=== PATIENT | male | born 1950 | race Caucasian/White ===

== ENCOUNTER 2017-09-04 13:56 | Emergency (ER) | payer MEDICARE, BC ==
[2017-09-04] MEDS ORDERED: Sodium Chloride 0.9% 10 ML Syringe FLUSH PRN (14:12)
[2017-09-04] MEDS ORDERED: Aspirin 81 MG Tab.Chew PO ONE (14:12)
--- NOTE | 2017-09-04 15:14 | CR ---
Chest: Portable view of the chest was obtained. Comparison: No prior study. Heart size is within normal limits. Mild tortuosity of the thoracic aorta is seen. Lungs are clear. Slight scoliosis is present within the spine. Impression: 1. Nothing acute is appreciated on portable chest x-ray. Diagnostic code #2
--- NOTE | 2017-09-04 15:24 | EDM.PDOC ---
ED HPI GENERAL MEDICAL PROBLEM - General Chief Complaint: Chest Pain Stated Complaint: SENT [facility] Time Seen by Provider: 09/04/17 14:06 Source of Information: Reports: Patient History Limitations: Reports: No Limitations - History of Present Illness INITIAL COMMENTS - FREE TEXT/NARRATIVE: The patient presents with right sided chest pain. This started this morning after feeding cows. The pain is not sharp but dull. Nothing makes it worse. He may be a little short of breath with it. He has no diaphoresis. He has no fever, chills, cough, congestion, runny nose, abdominal pain, nausea or vomiting. He checked his BP at home and it was high. He is on blood pressure medication. He has been under lots of stress lately. He has never had a heart attack or troubles with his heart. 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 Denies: Fever/ Chills, Headaches, Nausea/Vomiting Right Chest Pain Score (Numeric/FACES): 5 - Related Data Allergies Allergy/AdvReac Type Severity Reaction Status Date / Time No Known Allergies Allergy Verified 09/04/17 14:03 Home Meds: Home Meds Doxazosin Mesylate [Cardura] 8 mg PO DAILY 09/04/17 [History] Omeprazole 20 mg PO DAILY 09/04/17 [History] Tamsulosin HCl 0.4 mg PO DAILY 09/04/17 [History] Past Medical History Cardiovascular History: Reports: Hypertension Gastrointestinal History: Reports: GERD Genitourinary History: Reports: Renal Calculus Social & Family History - Tobacco Use Smoking Status *Q: Former Smoker Used Tobacco, but Quit: Yes Month/Year Tobacco Last Used: Second Hand Smoke Exposure: No - Caffeine Use Caffeine Use: Reports: Coffee - Recreational Drug Use Recreational Drug Use: No ED ROS GENERAL - Review of Systems Review Of Systems: See Below Constitutional: Reports: No Symptoms HEENT: Reports: No Symptoms Respiratory: Reports: Shortness of Breath Cardiovascular: Reports: Chest Pain Endocrine: Reports: No Symptoms GI/Abdominal: Reports: No Symptoms : Reports: No Symptoms Musculoskeletal: Reports: No Symptoms Skin: Reports: No Symptoms ED EXAM, GENERAL - Physical Exam Exam: See Below Exam Limited By: No Limitations General Appearance: Alert, No Apparent Distress Ears: Normal External Exam Nose: Normal Inspection Head: Atraumatic, Normocephalic Neck: Normal Inspection Respiratory/Chest: No Respiratory Distress, Lungs Clear, Normal Breath Sounds Cardiovascular: Regular Rate, Rhythm, No Edema, No Murmur GI/Abdominal: Soft, Non-Tender, No Organomegaly, No Mass Back Exam: Normal Inspection Extremities: Normal Inspection Neurological: Alert, Oriented, No Motor/Sensory Deficits EKG INTERPRETATION EKG Date: 09/04/17 Time: 14:03 Rhythm: NSR Rate (Beats/Min): 61 Kyle: Normal P-Wave: Present QRS: Normal ST-T: Normal QT: Normal Course - Vital Signs Last Recorded V/S: Last Vital Signs Temp 97.5 F 09/04/17 14:03 Pulse 73 09/04/17 14:03 Resp 20 09/04/17 14:03 BP 148/96 H 09/04/17 14:03 Pulse Ox 95 09/04/17 14:03 - Orders/Labs/Meds Orders: Active Orders 24 hr Category Date Time Status Cardiac Monitoring [RC] . DIRECTED Care 09/04/17 14:12 Active EKG Documentation Completion [RC] ASDIRECTED Care 09/04/17 16:39 Active EKG Documentation Completion [RC] STAT Care 09/04/17 14:12 Active Peripheral IV Care [RC] . DIRECTED Care 09/04/17 14:12 Active Sodium Chloride 0.9% [Saline Flush] Med 09/04/17 14:12 Active 10 ml FLUSH ASDIRECTED PRN Peripheral IV Insertion Adult [OM.PC] Stat Oth 09/04/17 14:12 Ordered EKG 12 Lead [EK] Stat Ther 09/04/17 16:39 Ordered Medication Orders Sodium Chloride (Saline Flush) 10 ml FLUSH ASDIRECTED PRN PRN Reason: Keep Vein Open Last Admin: 09/04/17 14:13 Dose: 10 ml Labs: Laboratory Tests 09/04/17 09/04/17 09/04/17 Range/Units 14:15 14:15 14:15 WBC 6.24 (4.23-9.07) K/mm3 RBC 5.57 (4.63-6.08) M/mm3 Hgb 16.0 (13.7-17.5) gm/L Hct 47.0 (40.1-51.0) % MCV 84.4 (79.0-92.2) fl MCH 28.7 (25.7-32.2) pg MCHC 34.0 (32.2-35.5) g/dl RDW Std Deviation 40.3 (35.1-43.9) fL Plt Count 200 (163-337) K/mm3 MPV 9.9 (9.4-12.3) fl Neut % (Auto) 62.7 (34.0-67.9) % Lymph % (Auto) 25.3 (21.8-53.1) % [place] % (Auto) 9.3 (5.3-12.2) % Eos % (Auto) 2.2 (0.8-7.0) Baso % (Auto) 0.3 (0.1-1.2) % Neut # (Auto) 3.91 (1.78-5.38) K/mm3 Lymph # (Auto) 1.58 (1.32-3.57) K/mm3 [place] # (Auto) 0.58 (0.30-0.82) K/mm3 Eos # (Auto) 0.14 (0.04-0.54) K/mm3 Baso # (Auto) 0.02 (0.01-0.08) K/mm3 D-Dimer, Quantitative 0.35 (0.19-0.59) mg/L Sodium 138 (136-145) mEq/L Potassium 4.2 (3.5-5.1) mEq/L Chloride 104 (98-107) mEq/L Carbon Dioxide 25 (21-32) mEq/L Anion Gap 13.2 (5-15) BUN 16 (7-18) mg/dL Creatinine 1.2 (0.7-1.3) mg/dL Est Cr Clr Drug Dosing 66.46 mL/min Estimated GFR (MDRD) > 60 (>60) mL/min BUN/Creatinine Ratio 13.3 L (14-18) Glucose 94 (80-115) mg/dL Calcium 8.7 (8.5-10.1) mg/dL Total Bilirubin 0.6 (0.2-1.0) mg/dL AST 19 (15-37) U/L ALT 25 (16-63) U/L Alkaline Phosphatase 46 (46-116) U/L Troponin I < 0.017 (0.00-0.056) ng/mL Total Protein 6.8 (6.4-8.2) g/dl Albumin 4.0 (3.4-5.0) g/dl Globulin 2.8 gm/dL Albumin/Globulin Ratio 1.4 (1-2) 09/04/17 Range/Units 16:51 WBC (4.23-9.07) K/mm3 RBC (4.63-6.08) M/mm3 Hgb (13.7-17.5) gm/L Hct (40.1-51.0) % MCV (79.0-92.2) fl MCH (25.7-32.2) pg MCHC (32.2-35.5) g/dl RDW Std Deviation (35.1-43.9) fL Plt Count (163-337) K/mm3 MPV (9.4-12.3) fl Neut % (Auto) (34.0-67.9) % Lymph % (Auto) (21.8-53.1) % [place] % (Auto) (5.3-12.2) % Eos % (Auto) (0.8-7.0) Baso % (Auto) (0.1-1.2) % Neut # (Auto) (1.78-5.38) K/mm3 Lymph # (Auto) (1.32-3.57) K/mm3 [place] # (Auto) (0.30-0.82) K/mm3 Eos # (Auto) (0.04-0.54) K/mm3 Baso # (Auto) (0.01-0.08) K/mm3 D-Dimer, Quantitative (0.19-0.59) mg/L Sodium (136-145) mEq/L Potassium (3.5-5.1) mEq/L Chloride (98-107) mEq/L Carbon Dioxide (21-32) mEq/L Anion Gap (5-15) BUN (7-18) mg/dL Creatinine (0.7-1.3) mg/dL Est Cr Clr Drug Dosing mL/min Estimated GFR (MDRD) (>60) mL/min BUN/Creatinine Ratio (14-18) Glucose (80-115) mg/dL Calcium (8.5-10.1) mg/dL Total Bilirubin (0.2-1.0) mg/dL AST (15-37) U/L ALT (16-63) U/L Alkaline Phosphatase (46-116) U/L Troponin I < 0.017 (0.00-0.056) ng/mL Total Protein (6.4-8.2) g/dl Albumin (3.4-5.0) g/dl Globulin gm/dL Albumin/Globulin Ratio (1-2) Meds: Medications Generic Name Dose Route Start Last Admin Trade Name Freq PRN Reason Stop Dose Admin Sodium Chloride 10 ml 09/04/17 14:12 09/04/17 14:13 Saline Flush FLUSH 10 ml ASDIRECTED PRN Administration Keep Vein Open Discontinued Medications Generic Name Dose Route Start Last Admin Trade Name Freq PRN Reason Stop Dose Admin Aspirin 324 mg 09/04/17 14:12 09/04/17 14:16 Aspirin PO 09/04/17 14:13 324 mg ONETIME ONE Administration - Re-Assessments/Exams Free Text/Narrative Re-Assessment/Exam: 09/04/17 15:33 I ordered an IV saline lock, EKG, CXR, labs and aspirin. His EKG shows a NSR with no acute changes. His CXR looks good. His CBC and CMP look good. His troponin is negative. 09/04/17 17:19 His repeat EKG shows a NSR with no acute changes. His troponin is negative. Departure - Departure Time of Disposition: 17:20 Disposition: Home, Self-Care 01 Condition: Good Clinical Impression: Atypical chest pain Referrals: Abbi Garnett, CLINICAL NURSING COORDINATOR [Primary Care Provider] - 1 Week Forms: ED Department Discharge Additional Instructions: Take aspirin or motrin for pain. Please return if you are worse. Keep taking your medication as prescribed. Follow up with Abbi Garnett within 1 week. - My Orders Last 24 Hours: My Active Orders 09/04/17 14:12 Cardiac Monitoring [RC] . DIRECTED EKG Documentation Completion [RC] STAT Peripheral IV Care [RC] . DIRECTED Sodium Chloride 0.9% [Saline Flush] 10 ml FLUSH ASDIRECTED PRN Peripheral IV Insertion Adult [OM.PC] Stat 09/04/17 16:39 EKG Documentation Completion [RC] ASDIRECTED EKG 12 Lead [EK] Stat - Assessment/Plan Last 24 Hours: My Active Orders 09/04/17 14:12 Cardiac Monitoring [RC] . DIRECTED EKG Documentation Completion [RC] STAT Peripheral IV Care [RC] . DIRECTED Sodium Chloride 0.9% [Saline Flush] 10 ml FLUSH ASDIRECTED PRN Peripheral IV Insertion Adult [OM.PC] Stat 09/04/17 16:39 EKG Documentation Completion [RC] ASDIRECTED EKG 12 Lead [EK] Stat
== END 2017-09-04 17:26 | disposition home or self-care (01) ==
LOC: JD.ED 13:56
DX: R07.89 Other chest pain (principal); K21.9 Gastro-esophageal reflux disease without esophagitis; I10 Essential (primary) hypertension; Z87.891 Personal history of nicotine dependence; Z79.899 Other long term (current) drug therapy
CPT/HCPCS: 36415; 71045; 80053; 84484; 85025; 85379; 93005; 99285; A9270; J7050; 93010; 99284-25